=== PATIENT | male | born 1955 | race Caucasian/White ===

== ENCOUNTER → 2019-06-09 | Outpatient (CLI) | payer OTHER ==
--- NOTE | 2019-06-09 14:28 | PCVCIMAG ---
APPROVED REPORT Study performed: 06/09/2019 12:54:32 EXAM: Comprehensive 2D, Doppler, and color-flow Echocardiogram Patient Location: Echo lab Status: routine BSA: 2.00 HR: 66 bpmBP: 130/82 mmHg Rhythm: NSR Other Information Study Quality: Adequate Indications Bradycardia Dyspnea 2D Dimensions IVSd: 7.23 (7-11mm)LVOT Diam: 22.58 (18-24mm) LVDd: 44.63 mm PWd: 7.63 (7-11mm)Ascending Ao: 32.49 (22-36mm) LVDs: 24.47 (25-40mm) Left Atrium: 37.42 (27-40mm) Aortic Root: 23.95 mm LV Single Plane 4CH: 49.58 % LV Single Plane 2CH: 65.02 % Biplane EF: 57.3 % Volumes Left Atrial Volume (Systole) Single Plane 4CH: 39.65 mLSingle Plane 2CH: 45.46 mL LA ESV Index: 22.00 mL/m2 Aortic Valve AoV Peak Chris.: 1.55 m/s AO Peak Gr.: 9.63 mmHgLVOT Max P.47 mmHg LVOT Max V: 0.93 m/s MELI Vmax: 2.39 cm2 AI Vmax: 2.24 m/s AI Wright: 1.48 m/s2 AI PHT: 437.64 ms Mitral Valve E/A Ratio: 0.9 MV Decel. Time: 239.15 ms MV E Max Hcris.: 0.76 m/s MV A Chris.: 0.87 m/s IVRT: 76.12 ms Pulmonary Valve PV Peak Chris.: 1.18 m/sPV Peak Gr.: 5.57 mmHg Tricuspid Valve TR Peak Chris.: 1.90 m/s TR Peak Gr.: 14.39 mmHg TV Vmax: 0.51 m/s Left Ventricle The left ventricle is normal size. There is normal LV segmental wall motion. There is normal left ventricular wall thickness. Left ventricular systolic function is normal. The left ventricular ejection fraction is within the normal range. LVEF is 55-60%. Grade I - abnormal relaxation pattern. Right Ventricle The right ventricle is normal size. The right ventricular systolic function is normal. Atria The left atrium size is normal. The right atrium size is normal. Aortic Valve Mild aortic valve sclerosis. Mild aortic regurgitation. There is no aortic valvular stenosis. Mitral Valve The mitral valve is normal in structure. There is no mitral valve regurgitation noted. No evidence of mitral valve stenosis. Tricuspid Valve The tricuspid valve is normal in structure. Trace tricuspid regurgitation with PAP of 21 mmHg. Pulmonic Valve The pulmonary valve is normal in structure. There is no pulmonic valvular regurgitation. Great Vessels The aortic root is normal in size. IVC is normal in size and collapses >50% with inspiration. Pericardium There is no pericardial effusion. There is no pleural effusion. <Conclusion> The left ventricle is normal size. There is normal left ventricular wall thickness. Left ventricular systolic function is normal. Grade I - abnormal relaxation pattern. The right ventricle is normal size. The left atrium size is normal. Mild aortic valve sclerosis. Mild aortic regurgitation. There is no mitral valve regurgitation noted. Trace tricuspid regurgitation with PAP of 21 mmHg.
--- NOTE | 2019-06-09 14:29 | PCVCIMAG ---
APPROVED REPORT Study performed: 06/09/2019 13:34:58 Exam: Stress Echocardiogram Indication: Dyspnea, bradycardia, fam hx cad Patient Location: Echo lab Stress Nurse: Flory Evans RN Status: routine Ht: 5 ft 10 in HR: 66 bpm BP: 130/82 mmHg Rhythm: NSR Procedure The patient underwent an Exercise Stress Test using the Juan Protocol. Blood pressure, heart rate, and EKG were monitored. An Echocardiogram was performed by electronic bench technician in four stages in quad fashion. At peak stress, four selected images were obtained and placed side by side with resting images for comparison. Stress Test Details Stress Test: Exercise stress testing was performed using a Juan protocol. HR Resting HR: 65 bpmMax Heart Rate (APMHR): 154 bpm Max HR Achieved: 151 bpmTarget HR (85% APMHR): 130 bpm % of APMHR: 98 Recovery HR: 92 bpm HR response to stress: Normal HR response to stress BP Resting BP: 130/82 mmHg Max BP: 164/62 mmHg Recovery BP: 164/62 mmHg BP response to stress: Normal blood pressure response to stress. ECG Resting ECG: Sinus Rhythm Stress ECG: Sinus Rhythm ST Change: Eqivocal Arrhythmia: None Recovery ECG: Sinus Rhythm Recovery ST Change: Normal Recovery Arrhythmia: None Clinical Reason for Termination: Maximal effort Stress Symptoms: Dyspnea Exercise duration: 9 min 35 sec Highest Stage Achieved: Stage 4: 4.2 mph at 16% grade. Exercise capacity: 11.9 METs Overall Exercise Capacity for Age: Normal Scale: Active Angina Score: None Pre-Stress Echo The resting Echocardiogram showed normal left ventricular contractility with an estimated Ejection Fraction of about >55%. Normal wall motion in all segments on baseline images. Post-Stress Echo The stress Echocardiogram showed normal left ventricular contractility with an estimated Ejection Fraction of about 65%. Normal augmentation of wall motion in all segments on post stress images. Clinical No clinical evidence for ischemia. Conclusion Clinical Response: Non-ischemic Exercise Capacity: Average Stress ECG Response: Equivocal Stress Echo Images: Non-ischemic The left ventricle is normal in size and wall thickness in both the rest and stress images. Other Information Study Quality: Adequate <Conclusion> The left ventricle is normal in size and wall thickness in both the rest and stress images.
== END | disposition home or self-care (01) ==
LOC: PCVCIMAG 12:45
PROVIDERS: ATTEND Internal Medicine Cardiovascular Disease
DX: I35.1 Nonrheumatic aortic (valve) insufficiency (principal); I10 Essential (primary) hypertension; Z82.49 Family history of ischemic heart disease and other diseases of the circulatory system; Z79.899 Other long term (current) drug therapy
CPT/HCPCS: 93306; 93351